=== PATIENT | male | born 1980 | race Caucasian/White ===

== ENCOUNTER 2023-12-07 06:50 | Emergency (ER) | payer MEDICAID ==
[~2023-12-07] VITALS: Ht 172.7 cm; Wt 93.0 kg
[2023-12-07 06:58] VITALS: O2SAT 98
[2023-12-07 07:44] VITALS: BP 132/78; PULSE 82; RESP 14; TEMP 98.7
== END 2023-12-07 07:52 | disposition home or self-care (01) ==
LOC: ER 06:50
DX: K40.90 Unilateral inguinal hernia, without obstruction or gangrene, not specified as recurrent (principal); E11.9 Type 2 diabetes mellitus without complications; I10 Essential (primary) hypertension; Z98.890 Other specified postprocedural states
CPT/HCPCS: 99283

== ENCOUNTER 2024-07-30 11:47 | Emergency (ER) | payer MEDICAID, OTHER ==
[~2024-07-30] VITALS: Ht 167.6 cm; Wt 80.0 kg
[2024-07-30 11:48] VITALS: BP 160/112; PULSE 90; RESP 16; TEMP 37.1; O2SAT 98
[2024-07-30 13:26] LABS: BASOPHILS % 0.3 % (0.0-2.0); EOSINOPHILS % 5.2 % (0.0-5.0); HEMATOCRIT. 45.1 % (42.0-52.0); HEMOGLOBIN. 15.2 g/dL (14.0-18.0); LYMPHOCYTES % 67.4 % (20.0-50.0); MEAN CORPUSCULAR HEMOGLOBIN 32.2 pg (28.0-32.0); MEAN CORPUSCULAR HGB CONC 33.7 g/dL (31.0-37.0); MEAN CORPUSCULAR VOLUME 95.6 fL (80.0-94.0); MEAN PLATELET VOLUME 7.7 fl (7.4-10.4); MONOCYTES % 2.4 % (2.0-8.0); NEUTROPHILS % 24.7 % (40.0-76.0); PLATELET 208 x1000/uL (130-400); RED BLOOD CELL COUNT 4.72 mill/uL (4.7-6.1); RED CELL DISTRIBUTION WIDTH 13.7 % (11.6-14.6)
[2024-07-30 13:28] LABS: CHLORIDE 107 mEq/L (98-107); POTASSIUM 3.8 mEq/L (3.5-5.1); SODIUM 144 mEq/L (136-145)
[2024-07-30 13:29] LABS: CARBON DIOXIDE 27 mEq/L (21-32)
[2024-07-30 13:30] LABS: CALCIUM 9.1 mg/dL (8.7-10.4)
[2024-07-30 13:34] LABS: CREATININE 0.9 mg/dL (0.6-1.3); GLUCOSE 119 mg/dL (70-105); UREA NITROGEN BLOOD 7 mg/dL (9-23)
[2024-07-30 13:46] LABS: ETHANOL BLOOD 421 mg/dL (<10)
== END 2024-07-30 15:24 | disposition left against medical advice (07) ==
LOC: ER 11:47
DX: F10.129 Alcohol abuse with intoxication, unspecified (principal); Z53.21 Procedure and treatment not carried out due to patient leaving prior to being seen by health care provider; Y90.9 Presence of alcohol in blood, level not specified
CPT/HCPCS: 36415; 80048; 80320; 85025; G0480

== ENCOUNTER 2025-03-21 14:25 | Emergency (ER) | payer OTHER ==
[~2025-03-21] VITALS: Ht 170.2 cm; Wt 90.0 kg
[2025-03-21 14:27] VITALS: O2SAT 99
[2025-03-21 14:53] VITALS: BP 138/74; PULSE 99; RESP 18; TEMP 37; O2SAT 98
[2025-03-21] MEDS: LIDOCAINE HCL 1% 20ML VIAL INFIL ONE (15:00)
[2025-03-21 15:48] LABS: CLARITY URINE CLEAR (CLEAR); COLOR URINE YELLOW (YELLOW); GLUCOSE URINE NEGATIVE (NEGATIVE); KETONES URINE NEGATIVE (NEGATIVE); LEUKOCYTE ESTERASE URINE NEGATIVE (NEGATIVE); NITRITE URINE NEGATIVE (NEGATIVE); OCCULT BLOOD URINE NEGATIVE (NEGATIVE); PH URINE 5.5 (4.5-8.0); PROTEIN URINE NEGATIVE (NEGATIVE); SPECIFIC GRAVITY URINE 1.006 (1.005-1.030); UROBILINOGEN URINE 0.2 E.U./dL (0.2-1.0)
== END 2025-03-21 15:30 | disposition home or self-care (01) ==
LOC: ER 14:25
DX: S01.01XA Laceration without foreign body of scalp, initial encounter (principal); F10.129 Alcohol abuse with intoxication, unspecified; Z20.822 Contact with and (suspected) exposure to COVID-19; X58.XXXA Exposure to other specified factors, initial encounter; Y93.89 Activity, other specified; Y92.89 Other specified places as the place of occurrence of the external cause; Y99.8 Other external cause status; Y90.9 Presence of alcohol in blood, level not specified
CPT/HCPCS: 81003; 12002; 99283; 87426; J2003; Z7610

== ENCOUNTER 2025-03-26 00:26 | Emergency (ER) | payer OTHER ==
[~2025-03-26] VITALS: Ht 167.6 cm; Wt 100.0 kg
[2025-03-26 00:35] VITALS: O2SAT 97
[2025-03-26] MEDS ORDERED: BO1 TP (00:43)
[2025-03-26 00:48] VITALS: BP 135/97; PULSE 100; RESP 16; TEMP 36.8; O2SAT 97
== END 2025-03-26 00:50 | disposition home or self-care (01) ==
LOC: ER 00:26
DX: S01.81XD Laceration without foreign body of other part of head, subsequent encounter (principal); I10 Essential (primary) hypertension; E11.9 Type 2 diabetes mellitus without complications; X58.XXXD Exposure to other specified factors, subsequent encounter
CPT/HCPCS: 99282

== ENCOUNTER 2025-04-03 14:14 | Emergency (ER) | payer OTHER ==
[~2025-04-03] VITALS: Ht 172.7 cm; Wt 89.0 kg
[~2025-04-03 14:14] MED LIST: BO1 TP
[2025-04-03 14:36] VITALS: O2SAT 97
[2025-04-03 14:41] VITALS: BP 136/87; PULSE 100; RESP 16; TEMP 36.7; O2SAT 98
== END 2025-04-03 15:14 | disposition home or self-care (01) ==
LOC: ER 14:14
DX: S01.01XD Laceration without foreign body of scalp, subsequent encounter (principal); E11.9 Type 2 diabetes mellitus without complications; I10 Essential (primary) hypertension; X58.XXXD Exposure to other specified factors, subsequent encounter
CPT/HCPCS: 99282